=== PATIENT | female | born 1960 | race American Indian/Alaskan Native ===

== ENCOUNTER 2021-01-26 12:42 | Outpatient (CLI) | payer OTHER ==
--- NOTE | 2021-01-26 14:42 | XRay Report ---
CERVICAL SPINE 3 VIEWS INDICATION: NECK PAIN.. COMPARISON: None. IMPRESSION: Normal alignment. No significant discogenic DJD or facet arthropathy. No acute osseous or soft tissue abnormality. LUMBOSACRAL SPINE 3 VIEWS INDICATION: Back pain. COMPARISON: None. IMPRESSION: There is mild levocurvature of the thoracolumbar spine. The disc spaces are unremarkabl e. Mild diffuse facet arthropathy is evident which is most pronounced at L3-4 and L4-5. No acute osse ous or soft tissue abnormality. LEFT HIP 2 VIEWS INDICATION: Left hip pain. COMPARISON: None. IMPRESSION: No acute osseous or soft tissue abnormality. No significant DJD. Signer Name: Mj Adam Jr, MD Signed: 01/26/2021 2:38 PM Workstation Name: [id number]
== END 2021-01-26 12:43 | disposition home or self-care (01) ==
LOC: XRAY 12:42
PROVIDERS: ATTEND Internal Medicine
DX: M47.816 Spondylosis without myelopathy or radiculopathy, lumbar region (principal); M41.85 Other forms of scoliosis, thoracolumbar region; M54.2 Cervicalgia; M25.562 Pain in left knee
CPT/HCPCS: 72040; 72100